=== PATIENT | female | born 1960 | race Caucasian/White ===

== ENCOUNTER 2016-10-20 22:57 | Emergency (ER) | payer OTHER ==
[2016-10-20 23:08] VITALS: TEMP 98.8; O2SAT 94
--- NOTE | 2016-10-21 00:15 | EDPHY ---
HPI/HX/ROS/PE/MDM Narrative: Chief complaint: Fever HPI: 56-year-old woman presenting for evaluation for fever. Patient states that yesterday she began having upper respiratory symptoms. Has had a mild cough. Some subjective fevers and chills. She does have a history of recent finger fracture status post surgical repair month ago. This was complicated by infection. She 1st took clindamycin then took a course of doxycycline. Patient did note that she had some increasing redness in her 1 finger yesterday. She did start taking doxycycline for this could she had some leftover. She has appointment with her hand surgeon tomorrow. She has been taking Tylenol 650 mg every 6 hours or so for fever, last was at 9 o'clock tonight. Patient states that she went to urgent care today at the suggestion of her hand surgeon to make sure she did not have flu or pneumonia. She had a flu test which was negative. They did not notice any findings on her lung exam to suggest pneumonia. However the urgent care doctor did suggest that if she continued to have fever she should come to the hospital for evaluation because she could possibly be septic. Patient otherwise has been feeling well. Has had a mild cough which is nonproductive. No shortness of breath. No abdominal pain. No nausea or vomiting. No dyspnea on exertion. She has mild redness over her distal phalanx of her finger but denies any redness coming up her hand. She feels that her symptoms are likely secondary to a virus but is presenting now at the suggestion of the urgent. She does state the approximately couple hours ago she did have a sudden onset of urinary urgency and had a episode of incontinence which is unusual for her. ROS: 10 point Review of Systems is negative except as noted in the HPI. Physical exam: Gen: Awake, Alert, No Distress HEENT: Nose: no rhinorrhea Eyes: PERRLA, EOMI Mouth: Moist mucosa Neck: Supple, no JVD Chest: nontender, lungs clear to auscultation Heart: S1, S2 normal, no murmur Abd: Soft, non-tender, no guarding Back: no CVA tenderness, no midline tenderness Ext: no edema, non-tender, left 4th finger she has a were closed well-healed incision over the PIP joint. There is some mild erythema overlying the distal phalanx. It is not, over the proximal phalanx. She has no tenderness along the flexor or extensor tendon sheath. She is not swollen. Skin: no rash Neuro: CN II-XII intact, Sensation grossly intact, Strength 5/5 in bilateral upper and lower extremities ED Course: 56-year-old woman been having subjective fevers and chills at home some mild erythema on her finger. She is certainly not appear septic at this time. She does not meet SIRS criteria in that she has a normal heart rate, a normal blood pressure, and normal respiratory rate, she has normal oxygen saturation. She has restarted doxycycline for her finger which I do not think is a source of systemic infection. She did have an episode of urinary incontinence earlier so will check urinalysis. She is otherwise well-appearing and afebrile here. If her urine looks clear plan will be to discharge her with follow up with her hand surgeon as scheduled tomorrow. I had a conversation with her at great length regarding working her up from his sepsis standpoint. She is very well appearing. I do not think a CBC will be useful at this time. Given that this is likely a viral syndrome she probably has leukocytosis any way. The we are treating a possible bacterial source of her finger and there is no other findings on her exam suggestive of any other bacterial source at this time. She has follow-up in place. She will return for any concerns. Urinalysis is negative. Patient continues to feel well. There are no objective findings to suggest acute bacteremia or sepsis at this time. Symptoms certainly are consistent with a viral upper respiratory infection. Will give her doxycycline to continue her treatment for her possible with surgical site infection of her finger. She will follow up with her hand surgeon tomorrow. Return for any worsening. - Data Points Laboratory Results: 10/21/16 00:15 Urine Color PALE YELLOW Urine Appearance CLEAR Urine pH 6.0 (5.0-7.5) Ur Specific [place] 1.005 (1.002-1.030) Urine Protein NEGATIVE (NEGATIVE) Urine Ketones NEGATIVE (NEGATIVE) Urine Blood NEGATIVE (NEGATIVE) Urine Nitrate NEGATIVE (NEGATIVE) Urine Bilirubin NEGATIVE (NEGATIVE) Urine Urobilinogen NEGATIVE EU (0.2-1.0) Ur Leukocyte Esterase NEGATIVE (NEGATIVE) Urine Glucose NEGATIVE (NEGATIVE) General Time Seen by Provider: 10/20/16 23:32 Initial Vital Signs: Initial Vital Signs Temperature (C) 37.1 C 10/20/16 23:01 Heart Rate 87 10/20/16 23:01 Respiratory Rate 16 10/20/16 23:01 Blood Pressure 151/89 H 10/20/16 23:01 O2 Sat (%) 94 10/20/16 23:01 O2 Delivery Mode Room Air Allergies/Adverse Reactions: Cephalosporins Allergy (Verified 10/20/16 23:00) clindamycin Allergy (Verified 10/20/16 23:00) Penicillins Allergy (Verified 10/20/16 23:00) Home Medications: Medication Instructions Recorded Doxycycline Hyclate 10/20/16 Synthroid 10/20/16 Tylenol 10/20/16 Departure - Departure Disposition: Home, Routine, Self-Care Clinical Impression: Infection of finger, Viral infection Condition: Good Instructions: Viral Syndrome (ED) Additional Instructions: Follow up with your hand surgeon tomorrow as scheduled. Return to the emergency department for worsening fevers or chills, weakness, chest pain, shortness of breath, abdominal pain, nausea, vomiting, or any other concerns. Referrals: Judith Connell MD [Primary Care Provider] - As per Instructions
[2016-10-21 00:24] LABS: COLOR PALE YELLOW; LEUKOCYTE ESTERASE,URINE NEGATIVE (NEGATIVE); NITRITE,URINE NEGATIVE (NEGATIVE)
[2016-10-21] MEDS ORDERED: DOXYCYCLINE 100 MG PREPACK#2 BTL TAKEHOME ONE (00:46)
[2016-10-21 00:57] VITALS: BP 142/62; PULSE 73; RESP 18
== END 2016-10-21 00:57 | disposition home or self-care (01) ==
DX: B34.9 Viral infection, unspecified (principal); L08.9 Local infection of the skin and subcutaneous tissue, unspecified

== ENCOUNTER 2017-07-17 18:49 | Emergency (ER) | payer OTHER ==
[2017-07-17 18:56] VITALS: O2SAT 99
--- NOTE | 2017-07-17 19:08 | EDPHY ---
H & P Time Seen by Provider: 07/17/17 19:00 HPI/ROS: CHIEF COMPLAINT: Left calf pain x5 days HISTORY OF PRESENT ILLNESS: 57-year-old female postop left bunionectomy [address] Mandy Palacios complaining of 5 days of left calf pain. No discoloration. No acute trauma. No weakness. No paresthesia. Spoke with her small offset printer who recommend she go to the ER for evaluation of possible DVT. No chest pain. No dyspnea. No back pain. No abdominal pain. No nausea no vomiting. Primary care provider: Dr Perdue Cardiology: Dr Loyola Podiatry: Dr Rasheeda Palacios REVIEW OF SYSTEMS: A ten point review of systems was performed and is negative with the exception of the items mentioned in the HPI PAST MEDICAL & SURGICAL HISTORY: Recent bunionectomy and cataract surgery SOCIAL HISTORY:nonsmoker PHYSICAL EXAM (Prior to examination, patient consented to physical exam, hands were washed and my usual and customary physical exam procedures followed) 1) GENERAL: Well-developed, well-nourished, alert and oriented. Appears to be in no acute distress. 2) HEAD: Normocephalic, atraumatic 3) HEENT: Pupils equal, round, reactive to light bilaterally. Sclera anicteric. No Injection. Funduscopic examination is grossly unremarkable. 4) NECK: Full range of motion, no meningeal signs. 5) LUNGS: Clear auscultation bilaterally, no wheezes, no rhonchi, no retractions. 6) HEART: Regular rate and rhythm, no murmur, no heave, no gallop. 7) ABDOMEN: No guarding, no rebound, no focal tenderness 8) MUSCULOSKELETAL: left foot surgical site appears well, granulating appropriately with no signs of infection, no dehiscence. The foot has soft compartments. The leg, calf has soft compartments negative Homans no palpable cord. DP PT pulses present and brisk. Brisk capillary refill 9) BACK: no visual or palpable abnormality. 10) SKIN: No rash, no petechiae. 11) NEURO: Awake, alert, and oriented to person, place and time. Answers questions appropriately. There were no obvious focal neurologic abnormalities. No cerebellar dysfunction. Normal steady gait. Upper and lower extremities bilaterally with strength 5 / 5, reflexes 2+.. DIFFERENTIAL DIAGNOSIS: In no particular order including but not limited to DVT , Superficial venous thrombus, central retinal artery occlusion, central retinal vein occlusion, CVA Smoking Status: Never smoked Constitutional: Initial Vital Signs Temperature (C) 37.3 C 07/17/17 18:53 Heart Rate 76 07/17/17 18:53 Respiratory Rate 20 07/17/17 18:53 Blood Pressure 180/90 H 07/17/17 18:53 O2 Sat (%) 99 07/17/17 18:53 O2 Delivery Mode Room Air Allergies/Adverse Reactions: Cephalosporins Allergy (Verified 07/17/17 18:52) clindamycin Allergy (Verified 07/17/17 18:52) Penicillins Allergy (Verified 07/17/17 18:52) Home Medications: Medication Instructions Recorded Synthroid 10/20/16 Rivaroxaban [Xarelto 15mg (*)] 15 mg PO BID #42 tab 07/17/17 MDM/Departure - MDM Imaging Results: Imaging Impressions Extremity Venous Study 07/17/17 19:06 Impression: Calf vein DVT, only. Results called and discussed with LORETO Bright at 07/17/2017 19:51 Images reviewed by myself Medications Given: Discontinued Medications Rivaroxaban (Xarelto) 15 mg PO EDNOW ONE Stop: 07/17/17 20:19 Last Admin: 07/17/17 21:12 Dose: 15 mg ED Course/Re-evaluation: 7:55 p.m.: Patient had informed the environmental laboratory technician of ongoing intermittent left visual field abnormality describing a blackening of her visual field which occurs she either bends over or goes from a supine to a sitting upright position. Currently asymptomatic. She had left cataract surgery 6 weeks ago by an habilitation worker in [place], symptoms started after that. She has seen her habilitation worker post his recently as 1 week ago and has also seen a retinal specialist as well the specific etiology of these symptoms is not completely clear. She was concerned about whether this could be secondary to CVA. Upon speaking with the patient further she denies other neurologic complaints, denies other visual acuity symptoms. Nonetheless physical examination neurologic examination was performed by myself and is grossly unremarkable. Doubt CVA. Doubt retinal detachment. 8:15 p.m.: Re-evaluation, discussed her imaging results positive for calf vein DVT. Discussed the case with secondary supervising physician Dr. Ware in the ER. Today is Wednesday. Plan will be starting the patient on Xarelto, however follow up with her primary care provider this week to discuss whether she should remain on Xarelto or other therapeutic modality such as daily aspirin. 830 p.m.: Patient requested I speak with her habilitation worker Dr. Andres May at [facility] before initiating anticoagulant therapy. He has been paged 8:45 p.m.: Phone consultation with on-call habilitation worker for Dr. Andres May, who was not immediately familiar with this patient's case but did not identify immediate contraindication to starting the patient on Xarelto for her lower extremity DVT. 9:00 p.m.: Discussed with patient my phone consultation with the on-call habilitation worker for Dr May. Provided my usual and customary anticoagulant therapy precautions and instructions. She agrees to initiating anticoagulant therapy. - Depart Disposition: Home, Routine, Self-Care Clinical Impression: Left leg DVT Qualifiers: Affected thrombotic vein of extremity: other lower extremity vein Chronicity: acute Qualified Code(s): I82.492 - Acute embolism and thrombosis of other specified deep vein of left lower extremity Condition: Good Instructions: Deep Venous Thrombosis (ED) Additional Instructions: Return to the emergency department immediately if you develop discoloration to your leg, numbness, tingling, if you develop change in her vision, or any other symptoms that concern you. Prescriptions: Rivaroxaban [Xarelto 15mg (*)] 15 mg PO BID #42 tab Referrals: Judith Connell MD [Primary Care Provider] - 07/19/17
[2017-07-17] MEDS ORDERED: RIVAROXABAN 15 MG TAB PO ONE (20:18)
[2017-07-17 20:41] LABS: % IMMATURE GRANULYOCYTES 0.2 % (0.0-1.1); ABSOLUTE IMMATURE GRANULOCYTES 0.01 10^3/uL (0.00-0.10); ADD DIFF? NO; ADD MORPH? NO; ADD SCAN? NO; ATYPICAL LYMPHOCYTE FLAG 0 (0-99); FRAGMENT RBC FLAG 0 (0-99); HEMATOCRIT 39.2 % (38.0-47.0); HEMOGLOBIN 13.6 g/dL (12.6-16.3); LEFT SHIFT FLG 0 (0-99); LIPEMIA HEMOLYSIS FLAG 90 (0-99); MEAN CELL HEMOGLOBIN CONCENTR. 34.7 g/dL (32.4-36.7); MEAN CELL VOLUME 95.1 fL (81.5-99.8); MEAN PLATELET VOLUME 11.6 fL (8.7-11.7); PLATELET CLUMPS FLAG 0 (0-99); PLATELET COUNT 226 10^3/uL (150-400); RED BLOOD CELL COUNT 4.12 10^6/uL (4.18-5.33); RED CELL DISTRIBUTION WIDTH 12.9 % (11.5-15.2)
[2017-07-17 20:50] LABS: INR 0.94 (0.83-1.16); PROTIME(PATIENT) 12.5 SEC (12.0-15.0)
[2017-07-17 20:51] LABS: ANION GAP 12 mEq/L (8-16); CALCIUM 9.8 mg/dL (8.5-10.4); CARBON DIOXIDE 28 mEq/l (22-31); CHLORIDE 102 mEq/L (97-110); CREATININE 1.1 mg/dL (0.6-1.0); GLOMERULAR FILTRATION RATE 51; GLUCOSE 106 mg/dL (70-100); POTASSIUM 4.3 mEq/L (3.5-5.2); SODIUM 142 mEq/L (134-144)
[2017-07-17] MEDS ORDERED: RIVAROXABAN 15 MG TAB ONE (21:04)
[2017-07-17 21:16] VITALS: BP 138/85; PULSE 64; RESP 15; TEMP 98.4
--- NOTE | 2017-07-18 16:34 | ASMTCMCOM ---
CM Note CM Note Notes: Patient admitted for Afib, UTI and after having a mechanical fall last night. Patient was recently d/c'd from [facility] on 07/16 with [facility] ([phone]). Patient lives at home with her , Brock ([phone]), who is blind. During last hospital stay, it was noted that a friend was staying with Brock while patient is in the hospital. Patient's son Keith can be reached at [phone]. Pt still drives and has been primary caregiver for her . Patient has been to [facility] in the past and was accepted at last visit but ended up going home with HC. This CM called [facility] and notified them of patient's admission. CM to follow. Date Signed: 07/18/2017 04:33 PM Electronically Signed By:Jessika Broderick RN
== END 2017-07-17 21:15 | disposition home or self-care (01) ==
DX: I82.492 Acute embolism and thrombosis of other specified deep vein of left lower extremity (principal)

== ENCOUNTER 2017-07-25 16:11 | Observation (INO) | payer OTHER ==
--- NOTE | 2017-07-25 16:51 | EDPHY ---
H & P Stated Complaint: yesterday at 3pm aphasia/word finding difficulty/visual changes/on xarelto Time Seen by Provider: 07/25/17 16:29 HPI/ROS: CHIEF COMPLAINT: Left eye tunnel vision HISTORY OF PRESENT ILLNESS: The patient is an anticoagulated 57 y/o female complaining of left eye tunnel vision/ transient sudden loss of vision when she stands up. On 05/31/17, 2 months ago, she had cataract surgery, but developed worsening christine vision in her left eye while standing up. Last month she had foot surgery after which she developed a DVT. 5 days ago she saw Dr. Chad Soliz, wallpaper embosser helper, for a follow up visit for the DVT, for which she was placed on Xarelto. Ever since the cataract surgery she has had left eye tunnel vision when she stands up strains up from being bent over from being bent over. The tunnel vision slowly diminishes after 1-2 minutes. She saw an street roller engineer on Wednesday, 2 days ago, where she was diagnosed with an "occlusion of her left eye". Patient reports undergoing a test to evaluate the arterial flow to the right in a. She was told by Ophthalmology that the arterial flow to the left retina was significantly diminished. Ophthalmology recommended angiograms of the head and neck. Yesterday she went for a walk, but developed tunnel vision while standing ( without bending over first), which had not happened before. She is also complaining of a left-sided headache behind her eye, but no eye pain. Patient also had an episode of word-finding difficulty yesterday lasting for several minutes. Today, while working on the computer, she had approximately 45 minute duration of vision problems described as "the sentences were disconnected, I could read from right to left, lines across a paper were wavy and bisecting each other". It is unclear whether this symptomatology was present in both eyes with a left only. Those symptoms have resolved. No numbness, tingling, or weakness in extremities, fever, chills, chest pain, shortness of breath, palpitations, vomiting, diarrhea, urinary complaints, lightheadedness. No tobacco or drug use. REVIEW OF SYSTEMS: Aside from elements discussed in the HPI, a comprehensive 10-point review of systems was reviewed and is negative. PAST MEDICAL HISTORY: DVT, CAD, hypothyroid, cataract surgery SOCIAL HISTORY: Lives in [place], single, retired VITAL SIGNS: BP: 175/103, MAP: 127, Others reviewed by me GENERAL: Well-developed, well-nourished, resting comfortably in no respiratory distress. HEENT: Atraumatic. Eyes: I did a funduscopic exam, I am able to visualize the retina and vessels in both eyes. No icterus, no injection. Mouth: moist mucous membranes. No erythema or lesions. Neck: supple with no adenopathy. LUNGS: Clear to auscultation bilaterally, no wheezes, rhonchi or rales. CARDIAC: Regular rate and rhythm, no rubs, murmurs or gallops. ABDOMEN: Soft, nontender, nondistended, bowel sounds normal. BACK: No CVA tenderness. EXTREMITIES: No trauma. No edema. Range of motion is normal throughout. NEURO: Alert and oriented, cranial nerves II through XII are intact. Motor strength 5 over 5 in all major muscle groups. Sensation intact to light touch. Vbdqyk-[id number]-cadl and [id number] is normal. EOMI. No nystagmus. SKIN: Warm and dry, no rash. PSYCHIATRIC: Normal mentation, no agitation. Portions of this note were transcribed by a medical billing and coding specialist. I personally performed a history, physical exam, medical decision making, and confirmed accuracy of information the transcribed note. - Personal History Current Tetanus/Diphtheria Vaccine: Yes Tetanus Vaccine Date: 2011 - Medical/Surgical History Hx Asthma: No Hx Chronic Respiratory Disease: No Hx Diabetes: No Hx Cardiac Disease: Yes Hx Renal Disease: No Hx Cirrhosis: No Hx Alcoholism: No Hx HIV/AIDS: No Hx Splenectomy or Spleen Trauma: No Other PMH: hypothyroid, CAD. bunionectomy, cataract sx. dvt - Social History Smoking Status: Never smoked Constitutional: Initial Vital Signs Temperature (C) 36.7 C 07/25/17 16:18 Heart Rate 88 07/25/17 16:18 Respiratory Rate 17 07/25/17 16:18 Blood Pressure 175/103 H 07/25/17 16:18 O2 Sat (%) 97 07/25/17 16:18 O2 Delivery Mode Room Air Allergies/Adverse Reactions: Cephalosporins Allergy (Verified 07/25/17 16:18) clindamycin Allergy (Verified 07/25/17 16:18) Penicillins Allergy (Verified 07/25/17 16:18) Home Medications: Medication Instructions Recorded Levothyroxine [Synthroid 50 mcg 50 mcg PO DAILY06 10/20/16 (*)] Rivaroxaban [Xarelto 15mg (*)] 15 mg PO BID #42 tab 07/17/17 Brimonidine/Timolol [Combigan (*)] 1 drops LEFTEYE BID 07/25/17 C/E/Zn/Cu/OM3/DHA/EPA/LUT/ZEAX 1 each PO DAILY 07/25/17 [Preservision Areds 2 Softgel] Cholecalciferol Vit D3 [Vitamin D3 1,000 units PO DAILY 07/25/17 (*)] Multivitamins [Multivitamin (*)] 1 each PO DAILY 07/25/17 Nepafenac [Nevanac] 1 drop LEFTEYE BID 07/25/17 Medical Decision Making - Diagnostics Imaging Results: Imaging Impressions Head CT 07/25/17 16:56 Impression: 1. No significant intracranial abnormality seen. If symptoms worsen, additional imaging may be necessary. These findings were discussed by telephone with Dr. Angela Mariee at 1953hrs. Head CTA 07/25/17 16:56 Impression: 1. Normal CT angiogram of the neck. The left vertebral artery is dominant. 2. Normal CT angiogram of the [place] with normal variation, as detailed above. Note: All calculations were performed using NASCET criteria. Findings discussed with Angela Mariee MD at 20:01 hour, 07/25/2017. Neck CTA 07/25/17 16:56 Impression: 1. Normal CT angiogram of the neck. The left vertebral artery is dominant. 2. Normal CT angiogram of the [place] with normal variation, as detailed above. Note: All calculations were performed using NASCET criteria. Findings discussed with Angela Mariee MD at 20:01 hour, 07/25/2017. Imaging: Discussed imaging studies w/ score caller Radiologist, I viewed and interpreted images myself ED Course/Re-evaluation: The patient is a 57 y/o female presenting with intermittent left eye tunnel vision which appears to be somewhat orthostatic in nature. She also does report an episode of word-finding difficulty yesterday and bilateral vision difficulty today. Plan for CTA of the head and neck as well as a head CT given the fact that the patient has had 2 abrupt focal neurologic deficits in the last 2 days. 2001: Spoke with radiologist, he report the patients head CT, head CTA, and Neck CTA are negative. 2010: Reassessed patient and discussed imaging findings. 2034: Consulted with [facility] regarding the patient's symptoms and imaging studies. Recommendation for admission and further evaluation for the patient's TIA. 2037: Consulted with hospitalist service, Dr. Hernández accepts admission of this patient. Reassessed patient and discussed plan for admission. Patient is comfortable with this plan. MRI pending at time of admission. Differential Diagnosis: Differential diagnoses the patient's presenting complaints was considered including but not limited to TIA, ischemic cerebrovascular accident, hemorrhagic cerebrovascular accident, hypoglycemia, complex migraine, multiple sclerosis, cerebellar infarct, retinal artery occlusion or retinal vein occlusion. Consult/Admit Bed Type: Dr Hernández, med surg - Data Points Laboratory Results: Laboratory Results 07/25/17 17:30 07/25/17 17:30 07/25/17 07/25/17 07/25/17 17:30 17:30 17:30 WBC 5.08 10^3/uL 10^3/uL (3.80-9.50) RBC 4.27 10^6/uL 10^6/uL (4.18-5.33) Hgb 14.0 g/dL g/dL (12.6-16.3) Hct 40.2 % % (38.0-47.0) MCV 94.1 fL fL (81.5-99.8) MCH 32.8 pg pg (27.9-34.1) MCHC 34.8 g/dL g/dL (32.4-36.7) RDW 12.8 % % (11.5-15.2) Plt Count 251 10^3/uL 10^3/uL (150-400) MPV 11.0 fL fL (8.7-11.7) Neut % (Auto) 44.2 % % (39.3-74.2) Lymph % (Auto) 39.8 % % (15.0-45.0) [place] % (Auto) 8.1 % % (4.5-13.0) Eos % (Auto) 5.9 % % (0.6-7.6) Baso % (Auto) 1.8 % H % (0.3-1.7) Nucleat RBC Rel Count 0.0 % % (0.0-0.2) Absolute Neuts (auto) 2.25 10^3/uL 10^3/uL (1.70-6.50) Absolute Lymphs (auto) 2.02 10^3/uL 10^3/uL (1.00-3.00) Absolute Monos (auto) 0.41 10^3/uL 10^3/uL (0.30-0.80) Absolute Eos (auto) 0.30 10^3/uL 10^3/uL (0.03-0.40) Absolute Basos (auto) 0.09 10^3/uL 10^3/uL (0.02-0.10) Absolute Nucleated RBC 0.00 10^3/uL 10^3/uL (0-0.01) Immature Gran % 0.2 % % (0.0-1.1) Immature Gran # 0.01 10^3/uL 10^3/uL (0.00-0.10) PT 17.2 SEC H SEC (12.0-15.0) INR 1.41 H (0.83-1.16) Sodium 140 mEq/L mEq/L (134-144) Potassium 3.7 mEq/L mEq/L (3.5-5.2) Chloride 99 mEq/L mEq/L (97-110) Carbon Dioxide 27 mEq/l mEq/l (22-31) Anion Gap 14 mEq/L mEq/L (8-16) BUN 16 mg/dL mg/dL (7-23) Creatinine 0.9 mg/dL mg/dL (0.6-1.0) Estimated GFR > 60 Glucose 123 mg/dL H mg/dL (70-100) Calcium 9.8 mg/dL mg/dL (8.5-10.4) Troponin I < 0.012 ng/mL ng/mL (0.000-0.034) Medications Given: Rivaroxaban (Xarelto) 15 mg PO EDNOW ONE Stop: 07/26/17 21:17 Last Admin: 07/25/17 21:19 Dose: 15 mg Departure - Departure Disposition: [facility] Clinical Impression: TIA (transient ischemic attack), Vision changes Condition: Fair Report Scribed for: Angela Mariee Report Scribed by: Leah Jacob Date of Report: 07/25/17 Time of Report: 16:53
[2017-07-25 17:36] LABS: PLATELET COUNT 251 10^3/uL (150-400)
[2017-07-25 17:50] LABS: INR 1.41 (0.83-1.16); PROTIME(PATIENT) 17.2 SEC (12.0-15.0)
[2017-07-25] MEDS ORDERED: IOPAMIDOL (ISOVUE 370) 100 ML BTL IV ONE (19:01)
[2017-07-25] MEDS ORDERED: RIVAROXABAN 15 MG TAB ONE (21:09)
[2017-07-25] MEDS ORDERED: ACETAMINOPHEN 325 MG TAB PO PRN (22:14)
[2017-07-25] MEDS ORDERED: LORazepam 2 MG/ML INJ IVP PRN (22:14)
[2017-07-25] MEDS ORDERED: ONDANSETRON 4 MG/2 ML VIAL IVP PRN (22:14)
--- NOTE | 2017-07-26 03:34 | PDGENHP ---
History and Physical - Chief Complaint tunnel vision left eye, word finding difficulties - History of Present Illness Source - patient provides history and very knowledgeable regarding pmhx. EMR also reviewed. HPI - Pleasant 57 yo F with pmhx significant for CAD, hypothyroidism, endometriosis, and recent DVT diagnosed 07/17/17 post bunion surgery now on Xarelto who presents to the ED with complaints of persistent episodes of intermittent tunnel vision left eye and today word finding and recall difficulties. Patient states that she underwent left eye cataract surgery 8 weeks ago and since that time has been having episodes of tunnel vision lasting 1-2 minutes after sitting up or bending over. She reports a headache behind her left eye after surgery that has since resolved. She denies any facial drooping, dysarthria or new focal findings in her extremities. Patient states she followed up with general production laborer and underwent a retinal angiogram at [facility] ophthalmology practice. She states findings were negative for occlusion but delayed filling of contrast was reported. She was subsequently referred to cardiology for an echo with bubble study results of which she has not yet been advised. Today patient had a contractor at her home and noted that she was having difficulties finding her words. She also noted episode of tunnel vision in the left eye however this time occurred while patient was standing still. Patient confided in her niece who is traditional maori health practitioner and advised to go to the ED for further evaluation. Patient states she has been compliant with Xarelto dosing since she was diagnosed with DVT. She continues to have some swelling in her left foot/calf but denies any chest pain/palpitations or SOB. History Information - Allergies/Home Medication List Allergies/Adverse Reactions: Cephalosporins Allergy (Verified 07/25/17 16:18) clindamycin Allergy (Verified 07/25/17 16:18) Penicillins Allergy (Verified 07/25/17 16:18) Home Medications: Levothyroxine [Synthroid 50 mcg (*)] 50 mcg PO DAILY06 10/20/16 [Last Taken 02/03] Brimonidine/Timolol [Combigan (*)] 1 drops LEFTEYE BID 07/25/17 [Last Taken 02/03 21:00] C/E/Zn/Cu/OM3/DHA/EPA/LUT/ZEAX [Preservision Areds 2 Softgel] 1 each PO DAILY [Last Taken 07/25/17] Cholecalciferol Vit D3 [Vitamin D3 (*)] 1,000 units PO DAILY 07/25/17 [Last Taken 07/25/17] Multivitamins [Multivitamin (*)] 1 each PO DAILY 07/25/17 [Last Taken 07/25/17] Nepafenac [Nevanac] 1 drop LEFTEYE BID 07/25/17 [Last Taken 07/25/17 21:00] I have personally reviewed and updated: family history, medical history, social history, surgical history - Past Medical History Additional medical history: DVT left leg 07/17/17 on Xarelto s/p left bunion surgery. CAD not on medical therapy. hypothyroidism. endometriosis/fibroids. Left eye retinal scarring s/p resurfacing vitreous removal. Left eye glaucoma s/p cataract extraction with lens placement. subsequently patient left pupil slightly larger than right. - Surgical History Additional surgical history: L retinal. L cataract surgery 05/2017. L bunion . T/A. D&C. ovarian cystectomy 2008 - Family History Additional family history: father - CAD s/p 5 vessel CABG age 49, ESRD. CVA. mother - afib, pancreatic and thyroid cancer. CVA. Maternal aunt - fatal CVA. 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 FULL COR - proxy Usha Ashley (niece), David Navarro (uncle). Review of Systems Review of Systems: ROS: 10pt was reviewed & negative except for what was stated in HPI & below Constitutional: Reports: no symptoms. Denies: chills, fever, weakness EENMT: Reports: other (no congestion, sore throat. ) Cardiac: Reports: no symptoms. Denies: chest pain, palpitations, syncope Respiratory: Reports: no symptoms. Denies: cough, shortness of breath Gastrointestinal: Reports: no symptoms. Denies: vomitting, diarrhea Genitourinary: Reports: no symptoms Muscolosketal: Reports: no symptoms Skin: Reports: no symptoms. Denies: rash Neurological: Reports: other (tunnel vision, aphasia - see HPI.) Physical Exam Physical Exam: Selected Entries 07/25/17 16:18 Blood Pressure Automatic Method Heart Rate 88 Respiratory 17 Rate O2 Sat (%) 97 Temperature (C) 36.7 C Blood Pressure 175/103 H Mean Arterial 127 H Pressure (MAP) O2 Delivery Room Air Mode Temperature Oral Source Temp Pulse Resp BP Pulse Ox 36.3 C 63 16 111/66 94 07/25/17 23:52 07/25/17 23:52 07/25/17 23:52 07/25/17 23:52 07/25/17 23:52 Constitutional: no apparent distress, appears nourished, not in pain, other ( NAD. pleasant adult female sitting up in bed. ) Eyes: PERRL, anicteric sclera, EOMI Ears, Nose, Mouth, Throat: moist mucous membranes, other (no nasal discharge. no oropharyngeal erythema.) Cardiovascular: regular rate and rhythym, no murmur, rub, or gallop, pulses symmetric bilaterally, No edema Peripheral Pulses: 2+: dorsalis-pedis (R), dorsalis-pedis (L) Respiratory: no respiratory distress, no rales or rhonchi, clear to auscultation Gastrointestinal: normoactive bowel sounds, soft, non-tender abdomen, no palpable masses Genitourinary: no bladder fullness, No max in urethra Skin: warm, normal color, No rash Musculoskeletal: full muscle strength, no muscle tenderness, No generalized weakness Neurologic: AAOx3, sensation intact bilaterally, CN II-XII Intact, No weakness, No numbness, No facial droop Psychiatric: interacting appropriately, not anxious, not encephalopathic, thought process linear Lab Data & Imaging Review 07/25/17 17:30 07/25/17 17:30 WBC 5.08 10^3/uL (3.80-9.50) 07/25/17 17:30 RBC 4.27 10^6/uL (4.18-5.33) 07/25/17 17:30 Hgb 14.0 g/dL (12.6-16.3) 07/25/17 17:30 Hct 40.2 % (38.0-47.0) 07/25/17 17:30 MCV 94.1 fL (81.5-99.8) 07/25/17 17:30 MCH 32.8 pg (27.9-34.1) 07/25/17 17:30 MCHC 34.8 g/dL (32.4-36.7) 07/25/17 17:30 RDW 12.8 % (11.5-15.2) 07/25/17 17:30 Plt Count 251 10^3/uL (150-400) 07/25/17 17:30 MPV 11.0 fL (8.7-11.7) 07/25/17 17:30 Neut % (Auto) 44.2 % (39.3-74.2) 07/25/17 17:30 Lymph % (Auto) 39.8 % (15.0-45.0) 07/25/17 17:30 [place] % (Auto) 8.1 % (4.5-13.0) 07/25/17 17:30 Eos % (Auto) 5.9 % (0.6-7.6) 07/25/17 17:30 Baso % (Auto) 1.8 % (0.3-1.7) H 07/25/17 17:30 Nucleat RBC Rel Count 0.0 % (0.0-0.2) 07/25/17 17:30 Absolute Neuts (auto) 2.25 10^3/uL (1.70-6.50) 07/25/17 17:30 Absolute Lymphs (auto) 2.02 10^3/uL (1.00-3.00) 07/25/17 17:30 Absolute Monos (auto) 0.41 10^3/uL (0.30-0.80) 07/25/17 17:30 Absolute Eos (auto) 0.30 10^3/uL (0.03-0.40) 07/25/17 17:30 Absolute Basos (auto) 0.09 10^3/uL (0.02-0.10) 07/25/17 17:30 Absolute Nucleated RBC 0.00 10^3/uL (0-0.01) 07/25/17 17:30 Immature Gran % 0.2 % (0.0-1.1) 07/25/17 17:30 Immature Gran # 0.01 10^3/uL (0.00-0.10) 07/25/17 17:30 PT 17.2 SEC (12.0-15.0) H 07/25/17 17:30 INR 1.41 (0.83-1.16) H 07/25/17 17:30 Sodium 140 mEq/L (134-144) 07/25/17 17:30 Potassium 3.7 mEq/L (3.5-5.2) 07/25/17 17:30 Chloride 99 mEq/L (97-110) 07/25/17 17:30 Carbon Dioxide 27 mEq/l (22-31) 07/25/17 17:30 Anion Gap 14 mEq/L (8-16) 07/25/17 17:30 BUN 16 mg/dL (7-23) 07/25/17 17:30 Creatinine 0.9 mg/dL (0.6-1.0) 07/25/17 17:30 Estimated GFR > 60 07/25/17:30 Glucose 123 mg/dL (70-100) H 07/25/17 17:30 Calcium 9.8 mg/dL (8.5-10.4) 07/25/17:30 Troponin I < 0.012 ng/mL (0.000-0.034) 07/25/17 17:30 Imaging Review: Noncontrast Head CT 1 hours History: TIA symptoms. Aphasia with tunnel vision yesterday. Loss of vision left eye. Technique: Standard noncontrast head CT protocol utilizing spiral images was acquired through the calvarium. Images were reconstructed in multiple planes as well. Dose reduction techniques were utilized. Findings: The cerebral parenchyma has a normal attenuation throughout. There are no masses, intracranial hemorrhage, subdural collections, or evidence of recent cerebral infarction. The bones are unremarkable. The paranasal sinuses are clear. Impression: 1. No significant intracranial abnormality seen. If symptoms worsen, additional imaging may be necessary. CT Angiogram of the Head and Neck 3 hours History: TIA symptoms with dysphasia; Word-finding difficulty. Loss of vision in the left eye. Technique: Spiral imaging was obtained from the aortic arch through the skull during the administration of 85 mL Isovue-370 IV contrast. The images were reviewed in multiple planes. Volume rendering and vessel analysis was performed by myself on the independent workstation. Dose reduction techniques were utilized. Findings: CT Angiogram Neck: The aortic arch has a normal contour. The great vessels off the aortic arch are normal in appearance. The common carotid artery has a normal contour bilaterally. The carotid bulb is normal in appearance without plaque formation. The ECA and ICA are normal without plaque formation or stenosis. The vertebral arterial system within the neck is normal in appearance without stenosis, as well. The left vertebral artery is dominant. The origin of the vertebral artery is normal bilaterally. There is no evidence of aneurysm or dissection. Images through the neck demonstrate no significant lymphadenopathy. A few small subcentimeter lymph nodes are seen. The musculature is symmetric. The submandibular glands and parotid glands are normal in appearance bilaterally. CT Angiogram [place]: The distal ICA at the base of the brain has a normal appearance bilaterally without evidence of stenosis. No significant plaque formation is seen. There is normal branching into the anterior and middle cerebral arteries. The anterior communicating artery is normal in appearance. There is no cutoff of flow or evidence of aneurysm. There is a dominant posterior communicating artery bilaterally. Normal ophthalmic artery is seen bilaterally. The vertebrobasilar system demonstrates normal contrast enhancement without evidence of stenosis or aneurysm. However, the right distal vertebral artery terminates in the posterior inferior cerebellar artery. There is normal branching into the superior cerebellar artery. There is a tiny P1 segment bilaterally with posterior cerebral artery circulation predominantly off the posterior communicating artery bilaterally. Imaging through the brain demonstrates no evidence of intracranial hemorrhage, subdural collection, vascular malformation, or evidence of cerebral infarction. Cataract surgery on the left is noted. The optic nerve has a normal contour bilaterally. The extraocular muscles are normal in appearance. Impression: 1. Normal CT angiogram of the neck. The left vertebral artery is dominant. 2. Normal CT angiogram of the [place] with normal variation, as detailed above. MRI Brain (Without Contrast) 2208 hours History: Visual difficulties today with word finding difficulties yesterday . Technique: T1-weighted images were acquired axially and sagittally from the foramen magnum to the vertex. Axial fast inversion recovery, fast T2-weighted, susceptibility weighted imaging, and diffusion-weighted axial images were obtained without contrast. Findings: The ventricles, cisterns, and sulci are normal without atrophy, hydrocephalus, midline shift, herniation, or epidural/subdural hematomas. No intracranial hemorrhage or masses. Diffusion weighted sequence demonstrates no acute infarct. Cerebellar tonsils are in normal position. Pituitary gland is normal in size. Normal signal flow-void in the superior sagittal sinus, basilar artery, and bilateral internal carotid arteries indicating patency. Paranasal sinuses and mastoid air cells are clear. Incidental note is made of changes from previous cataract surgery left orbit. Impression: 1. Normal MRI of the brain without contrast. If symptoms worsen, additional imaging may be necessary. EKG additional interpertation: tele - NSR. ekg ordered. Assessment & Plan Assessment: #Vision changes - patient evaluation for acute CVA with CT head/CTA head & neck/ MRI negative. patient with longstanding history of issues with left eye. reports recent retinal angio showed slowed filling defect. 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 Additionally echo with bubble was recently completed with cardiology and will also try to obtain report. ddx including TIA (with newly reported aphasia) vs. amaurosis fugax vs other retinal artery or ophthalmologic abnormalities. stroke protocol in place. PT/OT /ST consultation. check lipids/a1c in AM. ekg also ordered. NSR on tele. #aphasia - ST for cognitive evaluation. #hyperglycemia - nonfasting and patient without previous history. check a1c. #elevated inr - on xarelto. no need to repeat. chronic medical problems DVT - continue xarelto CAD - not currently on medical therapy. pt adheres to strict lifestyle modifications. hypothyroidism - continue l-thyroxine. FEN - SLIV. electrolyte replacement if needed. cardiac diet. PPX - no SCDs 2/2 DVT. on Xarelto will continue COR - FULL. Patient niece/traditional maori health practitioner Usha Abbsasha and uncle Oumar Navarro proxy if needed. Dispo - Patient admitted to observation on neurology floor.
[2017-07-26 05:21] LABS: PLATELET COUNT 234 10^3/uL (150-400)
[2017-07-26] MEDS ORDERED: LEVOTHYROXINE 50 MCG TAB PO SCH (07:45)
[2017-07-26 07:47] VITALS: RESP 22
[2017-07-26] MEDS ORDERED: NEPAFENAC LEFTEYE SCH (09:00)
[2017-07-26] MEDS ORDERED: CHOLECALCIFEROL VIT D3 1,000 UNITS TAB PO SCH (09:00)
[2017-07-26] MEDS ORDERED: PRESERVISION AREDS2 FORMULA EYE VIT 1 EACH PO SCH (09:00)
[2017-07-26] MEDS ORDERED: MULTIVITAMINS 1 EACH TAB PO SCH (09:00)
[2017-07-26] MEDS ORDERED: BRIMONIDINE/TIMOLOL 5 ML OPHT.BTL LEFTEYE SCH (09:00)
--- NOTE | 2017-07-26 09:43 | CPEKG ---
Heart Rate: 68 RR Interval: 882 P-R Interval: 164 QRSD Interval: 80 QT Interval: 380 QTC Interval: 405 P Ringling: 77 QRS Ringling: 61 T Wave Ringling: 66 EKG Severity - BORDERLINE ECG - EKG Impression: SINUS RHYTHM EKG Impression: BORDERLINE T ABNORMALITIES, ANT-LAT LEADS Electronically Signed By: Ubaldo Aragon 27-Jul-2017 10:40:23
[2017-07-26 11:00] VITALS: O2SAT 94
--- NOTE | 2017-07-26 11:41 | HOSPPROG ---
Hospitalist Progress Note Assessment/Plan: #Ischemic optic neuropathy with hypoperfusion symptoms / ongoing visual deficit - MRI brain and CTA head/neck neg for acute CVA. She has a complex h/o macular pucker (apparently resolved), followed by cataract surgery in 05/2017. Then developed corneal infection in 06/2017. Continues to have episodes of blackout vision on the left with just a pinpoint of visual field. Symptoms are positional and per Dr. Ovalle's note (3rd opthalmologist opinion), there was concern for choroid or opthalmic a. insufficiency and cardiovascular w/u ensued. Echo with bubble study done by Dr Aragon, no results in [place]. -I think it is reasonable to r/o cavernous sinus thrombosis given her DVT hx and symptoms associated with persistent headache and positional nature -Discussed with radiology for review of CTA and MRI -cardiology consult requested by Dr. Aragon -neurology consult requested -she will likely need referral to neuro-opthalmology at the [facility] #Ocular hypertension - cont combivan # DVT - cont xarelto #aphasia - resolved #hyperglycemia - nonfasting and patient without previous history. check a1c. # CAD - outpt stress test scheduled for next week. Followed by Dr. Aragon # hypothyroidism - continue l-thyroxine. PPX - cont xarelto COR - FULL. Patient niece/industrial eng Usha Pandey and uncle Oumar Navarro proxy if needed. Dispo - Patient admitted to observation on neurology floor. Objective: Vital Signs Temp Pulse Resp BP Pulse Ox 36.6 C 71 22 H 109/67 94 07/26/17 07:46 07/26/17 10:16 07/26/17 07:46 07/26/17 10:16 07/26/17 10:16 Laboratory Results 07/26/17 04:20 07/26/17 04:20 07/25/17 07/26/17 07/27/17 05:59 05:59 05:59 Intake Total 400 Output Total 0 Balance 400 PT 17.2 SEC (12.0-15.0) H 07/25/17 17:30 INR 1.41 (0.83-1.16) H 07/25/17 17:30 ICD10 Worksheet Patient Problems: Problems Problem Status Onset TIA (transient ischemic attack) Acute Vision changes Acute
--- NOTE | 2017-07-26 11:41 | HOSPPROG ---
Hospitalist Progress Note Assessment/Plan: #Ischemic optic neuropathy with hypoperfusion symptoms / ongoing visual deficit - MRI brain and CTA head/neck neg for acute CVA. She has a complex h/o macular pucker (apparently resolved), followed by cataract surgery in 05/2017. Then developed corneal infection in 06/2017. Continues to have episodes of blackout vision on the left with just a pinpoint of visual field. Symptoms are positional and per Dr. Ovalle's note (3rd opthalmologist opinion), there was concern for choroid or opthalmic a. insufficiency and cardiovascular w/u ensued. Echo with bubble study done by Dr Aragon, no results in [place]. -I think it is reasonable to r/o cavernous sinus thrombosis given her DVT hx and symptoms associated with persistent headache and positional nature -Discussed with radiology for review of CTA and MRI -cardiology consult requested by Dr. Aragon -neurology consult requested -she will likely need referral to neuro-opthalmology at the [place] #Ocular hypertension - cont combivan # DVT - cont xarelto #aphasia - resolved #hyperglycemia - nonfasting and patient without previous history. check a1c. # CAD - outpt stress test scheduled for next week. Followed by Dr. Aragon # hypothyroidism - continue l-thyroxine. PPX - cont xarelto COR - FULL. Patient niece/risk management professional Usha Pandey and uncle Oumar Navarro proxy if needed. Dispo - Patient admitted to observation on neurology floor. Objective: Vital Signs Temp Pulse Resp BP Pulse Ox 36.6 C 71 22 H 109/67 94 07/26/17 07:46 07/26/17 10:16 07/26/17 07:46 07/26/17 10:16 07/26/17 10:16 Laboratory Results 07/26/17 04:20 07/26/17 04:20 07/25/17 07/26/17 07/27/17 05:59 05:59 05:59 Intake Total 400 Output Total 0 Balance 400 PT 17.2 SEC (12.0-15.0) H 07/25/17 17:30 INR 1.41 (0.83-1.16) H 07/25/17 17:30 ICD10 Worksheet Patient Problems: Problems Problem Status Onset TIA (transient ischemic attack) Acute Vision changes Acute
[2017-07-26] MEDS ORDERED: GADOBUTROL 10 ML VIAL IVP ONE (12:47)
[2017-07-26] MEDS ORDERED: RIVAROXABAN 15 MG TAB PO SCH (14:30)
[2017-07-26 15:42] VITALS: BP 119/83; PULSE 60; TEMP 97.9
--- NOTE | 2017-07-26 16:54 | ASMTCMCOM ---
CM Note CM Note Notes: Therapies clear pt for home, no CM d/c needs identified. Date Signed: 07/26/2017 04:53 PM Electronically Signed By:JUVENAL Sanabria
--- NOTE | 2017-07-26 16:54 | ASMTCMCOM ---
CM Note CM Note Notes: Therapies clear pt for home, no CM d/c needs identified. Date Signed: 07/26/2017 04:53 PM Electronically Signed By:JUVENAL Sanabria
--- NOTE | 2017-07-26 16:54 | ASMTCMCOM ---
CM Note CM Note Notes: Therapies clear pt for home, no CM d/c needs identified. Date Signed: 07/26/2017 04:53 PM Electronically Signed By:JUVENAL Sanabria
--- NOTE | 2017-07-26 17:30 | GDS ---
[f rep st] DISCHARGE SUMMARY DISCHARGE DIAGNOSES: 1. 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 2. Ocular hypertension, on Combigan. 3. Deep venous thrombosis, on Xarelto. 4. Aphasia, resolved. 5. Coronary artery disease, stable. 6. Hypothyroidism. CONSULTANTS: 1. Dr. Ubaldo Aragon, Cardiology. 2. Dr. Ashkan Pichardo, Neurology. IMAGING STUDIES AND PROCEDURES: 1. MRI of the brain, both with and without contrast, were normal without evidence of acute stroke or enhancing lesions. 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 2. MR venogram was negative for a cavernous sinus thrombosis or superior sagittal sinus thrombosis. 3. Head CT was negative. 4. CT angiogram of the head and neck was also negative for occlusions. HISTORY: For details, please see the History and Physical dated July 26, 2017. In brief, the ton blackman is a 57-year-old female with history of stable coronary artery disease, who [facility] with ongoing left visual field loss which she describes as a blackout with just a p inpoint of vision. These symptoms are episodic. She has a complex ophthalmologic history with a his tory of macular pucker, which is now apparently resolved. She then developed a rapidly progressive c ataract and underwent surgery for this in May 2017. She then developed a corneal infection in June of 2017. She has seen 3 ophthalmologists, most recently Dr. Ovalle in [place], who diagnosed ischemic optic neuropathy with hypoperfusion symptoms, and there was some concern there was occlusive disease between the heart and her ophthalmic artery, as it appeared she had some ophthalmic artery i nsufficiency. I discussed the case with 2 defense attorney, Dr. Vidales and Dr. Chad Aragon. She had an echo with a bu bble study in the outpatient setting last week that did show PFO with an intracardiac shunt, though t his is not believed to be the source of her symptoms. Angiography of the head and neck was negative, as above. Cardiology does not feel that there is a cardiovascular source for her ophthalmic artery insufficiency symptoms. Neurology consult also obtained, cavernous sinus thrombosis was essentially ruled out with the above imaging. At this point, she needs a consultation with Neuro[facility]Ophthalmology a t [facility], and she does have an appointment scheduled for August 05. There is obviously no evidence of acute stroke and I think the patient is safe to discharge home with outpatient followup i n the Neuro-Ophthalmology Clinic as scheduled. However, we are still waiting for Neurology to consul t; should there be any new recommendations from the neurology consult, that may delay her discharge. Otherwise, she is likely safe to discharge after cleared by Neurology. She has been continued on he r Xarelto for her DVT history. She will continue all of her outpatient eye medications as previously prescribed. DISPOSITION: Patient is discharged home in stable condition. FOLLOWUP: 1. Neuro-Ophthalmology at the [facility]. 2. Dr. Ovalle, electric motor tester assembler. 3. Dr. Ubaldo Aragon, defense attorney. 4. Dr. Judith Connell, her primary care. /[id number]/MODL
--- NOTE | 2017-07-26 17:30 | GDS ---
[f rep st] DISCHARGE SUMMARY DISCHARGE DIAGNOSES: 1. 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 2. Ocular hypertension, on Combigan. 3. Deep venous thrombosis, on Xarelto. 4. Aphasia, resolved. 5. Coronary artery disease, stable. 6. Hypothyroidism. CONSULTANTS: 1. Dr. Ubaldo Aragon, Cardiology. 2. Dr. Ashkan Pichardo, Neurology. IMAGING STUDIES AND PROCEDURES: 1. MRI of the brain, both with and without contrast, were normal without evidence of acute stroke or enhancing lesions. 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 2. MR venogram was negative for a cavernous sinus thrombosis or superior sagittal sinus thrombosis. 3. Head CT was negative. 4. CT angiogram of the head and neck was also negative for occlusions. HISTORY: For details, please see the History and Physical dated July 26, 2017. In brief, the ton blackman is a 57-year-old female with history of stable coronary artery disease, who presented to [facility] department with ongoing left visual field loss which she describes as a blackout with just a p inpoint of vision. These symptoms are episodic. She has a complex ophthalmologic history with a his tory of macular pucker, which is now apparently resolved. She then developed a rapidly progressive c ataract and underwent surgery for this in May 2017. She then developed a corneal infection in June of 2017. She has seen 3 ophthalmologists, most recently Dr. Ovalle in [place], who diagnosed ischemic optic neuropathy with hypoperfusion symptoms, and there was some concern there was occlusive disease between the heart and her ophthalmic artery, as it appeared she had some ophthalmic artery i nsufficiency. I discussed the case with 2 plant clerk, Dr. Vidales and Dr. Chad Aragon. She had an echo with a bu bble study in the outpatient setting last week that did show PFO with an intracardiac shunt, though t his is not believed to be the source of her symptoms. Angiography of the head and neck was negative, as above. Cardiology does not feel that there is a cardiovascular source for her ophthalmic artery insufficiency symptoms. Neurology consult also obtained, cavernous sinus thrombosis was essentially ruled out with the above imaging. At this point, she needs a consultation with Neuro-Ophthalmology a t [facility], and she does have an appointment scheduled for August 05. There is obviously no evidence of acute stroke and I think the patient is safe to discharge home with outpatient followup i n the Neuro-Ophthalmology Clinic as scheduled. However, we are still waiting for Neurology to consul t; should there be any new recommendations from the neurology consult, that may delay her discharge. Otherwise, she is likely safe to discharge after cleared by Neurology. She has been continued on he r Xarelto for her DVT history. She will continue all of her outpatient eye medications as previously prescribed. DISPOSITION: Patient is discharged home in stable condition. FOLLOWUP: 1. Neuro-Ophthalmology at the [facility]. 2. Dr. Ovalle, tamale machine feeder. 3. Dr. Ubaldo Aragon, plant clerk. 4. Dr. Judith Connell, her primary care. /[id number]/MODL
--- NOTE | 2017-07-26 17:30 | GDS ---
[f rep st] DISCHARGE SUMMARY DISCHARGE DIAGNOSES: 1. 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 2. Ocular hypertension, on Combigan. 3. Deep venous thrombosis, on Xarelto. 4. Aphasia, resolved. 5. Coronary artery disease, stable. 6. Hypothyroidism. CONSULTANTS: 1. Dr. Ubaldo Aragon, Cardiology. 2. Dr. Ashkan Pichardo, Neurology. IMAGING STUDIES AND PROCEDURES: 1. MRI of the brain, both with and without contrast, were normal without evidence of acute stroke or enhancing lesions. 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 2. MR venogram was negative for a cavernous sinus thrombosis or superior sagittal sinus thrombosis. 3. Head CT was negative. 4. CT angiogram of the head and neck was also negative for occlusions. HISTORY: For details, please see the History and Physical dated July 26, 2017. In brief, the ton blackman is a 57-year-old female with history of stable coronary artery disease, who presented to the [facility] department with ongoing left visual field loss which she describes as a blackout with just a p inpoint of vision. These symptoms are episodic. She has a complex ophthalmologic history with a his tory of macular pucker, which is now apparently resolved. She then developed a rapidly progressive c ataract and underwent surgery for this in May 2017. She then developed a corneal infection in June of 2017. She has seen 3 ophthalmologists, most recently Dr. Ovalle in [place], who diagnosed ischemic optic neuropathy with hypoperfusion symptoms, and there was some concern there was occlusive disease between the heart and her ophthalmic artery, as it appeared she had some ophthalmic artery i nsufficiency. I discussed the case with 2 college sports coach, Dr. Vidales and Dr. Chad Aragon. She had an echo with a bu bble study in the outpatient setting last week that did show PFO with an intracardiac shunt, though t his is not believed to be the source of her symptoms. Angiography of the head and neck was negative, as above. Cardiology does not feel that there is a cardiovascular source for her ophthalmic artery insufficiency symptoms. Neurology consult also obtained, cavernous sinus thrombosis was essentially ruled out with the above imaging. At this point, she needs a consultation with Neuro-Ophthalmology a t [facility], and she does have an appointment scheduled for August 05. There is obviously no evidence of acute stroke and I think the patient is safe to discharge home with outpatient followup i n the Neuro-Ophthalmology Clinic as scheduled. However, we are still waiting for Neurology to consul t; should there be any new recommendations from the neurology consult, that may delay her discharge. Otherwise, she is likely safe to discharge after cleared by Neurology. She has been continued on he r Xarelto for her DVT history. She will continue all of her outpatient eye medications as previously prescribed. DISPOSITION: Patient is discharged home in stable condition. FOLLOWUP: 1. Neuro-Ophthalmology at the [facility]. 2. Dr. Ovalle, stogy roller. 3. Dr. Ubaldo Aragon, college sports coach. 4. Dr. Judith Connell, her primary care. /[id number]/MODL
[2017-07-26] MEDS ORDERED: RIVAROXABAN 15 MG TAB PO ONE (21:16)
--- NOTE | 2017-07-26 22:40 | NEUROPROG ---
Assessment: [id number] CC: Dr. Ema Sandoval consulted neurology for vision issues. HPI: Pt admitted 07/25/17 to [facility] for persistent vision issues. She presented to the [facility] ER on 07/25/17 with persistent left eye vision issues (intermittent tunnel vision) and some word finding and recall difficulties. She reporteted 10 years prior she had some form of vision disturbance for which she was followed at the [facility] neuro-ophthalmology department for 1.5 years. She cannot recall what her diagnosis was and reported when she called the [place] they said they had no records older than 7 years old. At age 49 yo she reported a brief episode of aphasia for < 1 hour but reported no problems with aphasia since then. She did fine for years but 1 year ago had some form of eye degeneration in the left eye requiring surgery. This resulted in a cataract that required surgery. The surgery of the left cataract was 8 weeks ago and since then has noted episodes of tunnel vision in the left eye lasting 1 -2 minutes after sitting up or bending over. She reported she saw multiple ophthalmologists including a retinal expert and a cataract expert. One of the opthamologist performed a retinal angiogram that showed no occlusion but did show delayed filling of contrast. The opthamologist recommended she see a hand violin maker. She reported she saw one and had a echocardiogram but no abnormality was found. On 07/25/17 she noted some word finding difficulties as well as her typical left eye vision issues. She did have a left leg DVT recently following a left foot surgery and is on Xarelto (no missed dosing per patient). I initially saw the patient on 07/26/17 and confirmed the above history. She reported the brief word finding issues that occurred a few days ago had not recurred and other than left eye intermittent vision issues she had no neurologic problems. PMHx: CAD, hypothyroidism, endometriosis, DVT (07/17/17) post bunion surgery, left eye surgery with cataract with retinal scarring s/p resurfacing vitreous removal and left eye glaucoma w/lens replacement (anisocoria) Home Meds: levothyroxine, brimonidine/timolol, Vit D, nepafenac SHx: no tobacco FHx: CAD, ESRD, CVA, afib, cancer ROS: Pt denied acute fever, total vision loss, active severe chest pain, respiratory failure, total body severe rash, total bowel/bladder incontinence, psychosis, active seizures, or active bleeding O: VS reviewed General: Alert Eyes: Fundoscopic exam not able to visualize optic disks CV: Heart RRR, no murmur, no carotid bruit Lungs: Clear to auscultation bilaterally, no rhonchi or rales Neuro: - Mental: . Oriented x person/place/date . concentration appears normal . speech fluency/comprehension normal . memory appears normal . fund of knowledge appear intact - Cranial Nerves: . II: left pupil larger than right pupil, VFFTC . III/IV/: EOMI, no nystagmus, normal smooth pursuits, no Ptosis . V: facial sensation intact to LT . VII: face symmetric to eye closure and smile . VIII: hearing intact to conversation . IX/X: uvula raises symmetrically . XI: SCM 5/5 B/L strength . XII: tongue protrudes midline w/nl strength - Motor: . Tone: normal tone in all 4 extremity . Strength: no pronator drift, strength 5/5 throughout (B/L delt, bic, tri, hand ultimate hoops scoreboard operator, hf/he, df/pf) - Reflexes: B/L bic/BR/patella 2/4 - Sensory: all 4 extremity intact to light touch - Coord: [id number] wnl, MIKY wnl, [id number] wnl - Gait: deferred Labs: 07/26/17- CBC wnl, CMP wnl, H1AC 6.0, LDL 108H, TSH wnl Rads: 07/25/17- Brain MRI w/o con: normal (I personally visualized the images on ) 07/25/17- CTA head/neck: normal 07/26/17- Brain MRI w/con, MRV: old R cerebellar CVA, no acute changes, no evidence of venous thrombosis Assessment: 1. Recurrent left eye tunnel vision episodes since left eye cataract surgery May 2017: Normal neurologic exam (other than anisocoria from previous eye surgery) 07/26/17. Brain MRI w/ and w/o con on 07/25-03/06 showed no acute changes but did show old cerebellar stroke. Brain MRV showed no thrombosis and CTA head/neck unremarkable. 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 As symptoms began after cataract eye surgery it seems her left eye is the primary cause of her symptoms so a separate neurologic cause is unlikely. Pt reported cardiology evaluation and echocardiogram did not find a separate cause for her left eye issues. 2. 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 Pt possibly had an aphasia episode at age 49 yo and then a recurrent word finding episode a few days ago. Unclear cause of these symptoms but TIA is possible. Pt should be on life-long stroke precautions (blood pressure < 140/90, H1AC< 7.0 , LDL < 70). I offered a statin but she reported she is intolerant of that medication as well as intolerant to niaspan. She also reported she cannot take aspirin due to severe acid reflux. CTA head/neck on 07/25/17 was unremarkable. Pt also reported recent echocardiogram as an outpatient was unremarkable. I have recommended she discuss these symptoms with the neuro-opthamologist she visits with at the [facility]. Plan: - Work closely with PCM to ensure blood pressure < 140/90, H1AC< 7.0, and LDL < 70 (108) given old cerebellar stroke seen on brain MRI 07/26/17 - Recommend starting low-dose statin (pt refused as she said she is intolerant of statin) - Continue Xarelto for DVT, when anticoagulation no longer needed recommend life -long aspirin 81 mg qd given old cerebellar stroke seen on brain MRI (Pt declined using aspirin in the future as she reported she is intolerant to it due to acid reflux) - Recommend outpatient referral to neuro-ophthalmology to evaluate left eye visual complaints as well as to discuss rare episodes of word finding issues at times (2 episodes since age 49 yo) and possible old right cerebellar stroke seen on brain MRI, I have no additional therapy or evaluation to perform at this time Objective: Vital Signs Temp Pulse Resp BP Pulse Ox 36.6 C 60 22 H 119/83 H 94 07/26/17 15:41 07/26/17 15:41 07/26/17 15:41 07/26/17 15:41 07/26/17 15:41 Laboratory Results 07/26/17 04:20 07/26/17 04:20 07/25/17 07/26/17 07/27/17 05:59 05:59 05:59 Intake Total 400 Output Total 0 Balance 400 PT 17.2 SEC (12.0-15.0) H 07/25/17 17:30 INR 1.41 (0.83-1.16) H 07/25/17 17:30 Allergies/Adverse Reactions: Cephalosporins Allergy (Verified 07/25/17 16:18) clindamycin Allergy (Verified 07/25/17 16:18) Penicillins Allergy (Verified 07/25/17 16:18)
--- NOTE | 2017-07-26 22:40 | NEUROPROG ---
Assessment: [id number] CC: Dr. Ema Sandoval consulted neurology for vision issues. HPI: Pt admitted 07/25/17 to [facility] for persistent vision issues. She presented to the [facility] ER on 07/25/17 with persistent left eye vision issues (intermittent tunnel vision) and some word finding and recall difficulties. She reporteted 10 years prior she had some form of vision disturbance for which she was followed at the [facility] neuro-ophthalmology department for 1.5 years. She cannot recall what her diagnosis was and reported when she called the [place] they said they had no records older than 7 years old. At age 49 yo she reported a brief episode of aphasia for < 1 hour but reported no problems with aphasia since then. She did fine for years but 1 year ago had some form of eye degeneration in the left eye requiring surgery. This resulted in a cataract that required surgery. The surgery of the left cataract was 8 weeks ago and since then has noted episodes of tunnel vision in the left eye lasting 1 -2 minutes after sitting up or bending over. She reported she saw multiple ophthalmologists including a retinal expert and a cataract expert. One of the opthamologist performed a retinal angiogram that showed no occlusion but did show delayed filling of contrast. The opthamologist recommended she see a environmental test technician. She reported she saw one and had a echocardiogram but no abnormality was found. On 07/25/17 she noted some word finding difficulties as well as her typical left eye vision issues. She did have a left leg DVT recently following a left foot surgery and is on Xarelto (no missed dosing per patient). I initially saw the patient on 07/26/17 and confirmed the above history. She reported the brief word finding issues that occurred a few days ago had not recurred and other than left eye intermittent vision issues she had no neurologic problems. PMHx: CAD, hypothyroidism, endometriosis, DVT (07/17/17) post bunion surgery, left eye surgery with cataract with retinal scarring s/p resurfacing vitreous removal and left eye glaucoma w/lens replacement (anisocoria) Home Meds: levothyroxine, brimonidine/timolol, Vit D, nepafenac SHx: no tobacco FHx: CAD, ESRD, CVA, afib, cancer ROS: Pt denied acute fever, total vision loss, active severe chest pain, respiratory failure, total body severe rash, total bowel/bladder incontinence, psychosis, active seizures, or active bleeding O: VS reviewed General: Alert Eyes: Fundoscopic exam not able to visualize optic disks CV: Heart RRR, no murmur, no carotid bruit Lungs: Clear to auscultation bilaterally, no rhonchi or rales Neuro: - Mental: . Oriented x person/place/date . concentration appears normal . speech fluency/comprehension normal . memory appears normal . fund of knowledge appear intact - Cranial Nerves: . II: left pupil larger than right pupil, VFFTC . III/IV/: EOMI, no nystagmus, normal smooth pursuits, no Ptosis . V: facial sensation intact to LT . VII: face symmetric to eye closure and smile . VIII: hearing intact to conversation . IX/X: uvula raises symmetrically . XI: SCM 5/5 B/L strength . XII: tongue protrudes midline w/nl strength - Motor: . Tone: normal tone in all 4 extremity . Strength: no pronator drift, strength 5/5 throughout (B/L delt, bic, tri, hand bottle feeder, hf/he, df/pf) - Reflexes: B/L bic/BR/patella 2/4 - Sensory: all 4 extremity intact to light touch - Coord: [id number] wnl, MIKY wnl, [id number] wnl - Gait: deferred Labs: 07/26/17- CBC wnl, CMP wnl, H1AC 6.0, LDL 108H, TSH wnl Rads: 07/25/17- Brain MRI w/o con: normal (I personally visualized the images on ) 07/25/17- CTA head/neck: normal 07/26/17- Brain MRI w/con, MRV: old R cerebellar CVA, no acute changes, no evidence of venous thrombosis Assessment: 1. Recurrent left eye tunnel vision episodes since left eye cataract surgery May 2017: Normal neurologic exam (other than anisocoria from previous eye surgery) 07/26/17. Brain MRI w/ and w/o con on 07/25-03/06 showed no acute changes but did show old cerebellar stroke. Brain MRV showed no thrombosis and CTA head/neck unremarkable. 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 As symptoms began after cataract eye surgery it seems her left eye is the primary cause of her symptoms so a separate neurologic cause is unlikely. Pt reported cardiology evaluation and echocardiogram did not find a separate cause for her left eye issues. 2. 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 Pt possibly had an aphasia episode at age 49 yo and then a recurrent word finding episode a few days ago. Unclear cause of these symptoms but TIA is possible. Pt should be on life-long stroke precautions (blood pressure < 140/90, H1AC< 7.0 , LDL < 70). I offered a statin but she reported she is intolerant of that medication as well as intolerant to niaspan. She also reported she cannot take aspirin due to severe acid reflux. CTA head/neck on 07/25/17 was unremarkable. Pt also reported recent echocardiogram as an outpatient was unremarkable. I have recommended she discuss these symptoms with the neuro-opthamologist she visits with at the [facility]. Plan: - Work closely with PCM to ensure blood pressure < 140/90, H1AC< 7.0, and LDL < 70 (108) given old cerebellar stroke seen on brain MRI 07/26/17 - Recommend starting low-dose statin (pt refused as she said she is intolerant of statin) - Continue Xarelto for DVT, when anticoagulation no longer needed recommend life -long aspirin 81 mg qd given old cerebellar stroke seen on brain MRI (Pt declined using aspirin in the future as she reported she is intolerant to it due to acid reflux) - Recommend outpatient referral to neuro-ophthalmology to evaluate left eye visual complaints as well as to discuss rare episodes of word finding issues at times (2 episodes since age 49 yo) and possible old right cerebellar stroke seen on brain MRI, I have no additional therapy or evaluation to perform at this time Objective: Vital Signs Temp Pulse Resp BP Pulse Ox 36.6 C 60 22 H 119/83 H 94 07/26/17 15:41 07/26/17 15:41 07/26/17 15:41 07/26/17 15:41 07/26/17 15:41 Laboratory Results 07/26/17 04:20 07/26/17 04:20 07/25/17 07/26/17 07/27/17 05:59 05:59 05:59 Intake Total 400 Output Total 0 Balance 400 PT 17.2 SEC (12.0-15.0) H 07/25/17 17:30 INR 1.41 (0.83-1.16) H 07/25/17 17:30 Allergies/Adverse Reactions: Cephalosporins Allergy (Verified 07/25/17 16:18) clindamycin Allergy (Verified 07/25/17 16:18) Penicillins Allergy (Verified 07/25/17 16:18)
--- NOTE | 2017-07-27 13:13 | GCON ---
[f rep st] CONSULTATION HISTORY OF PRESENT ILLNESS: This is a 57-year-old woman with multiple major ophthalmologic issues. I saw her last week in the office, and at that time, she was having trouble when she would lie down. She might lose her vision completely and then sometimes she would sit up and it would come back start ing as a central dot and the dot would expand to the whole visual field. She had been having some tro uble with headaches as well. She has had multiple procedures done including cataract surgery, and then she has been also seeing a retinal specialists as well. She has recently been told that the blood flow in one eye is significant ly worse than the blood flow in the other eye and is being evaluated on an ongoing basis by the [facility] ophthalmological services around [facility]. When I saw her, I was very concerned about her eye symptoms and, by personally calling Dr. Edilberto kam on his cellphone, arranged for her to be seen by him the next morning at 11 o'clock; he added her to his schedule. However, she felt like their medical record requirements were deleterious for her an d so she did not see him and was not evaluated at that time, but he was very concerned about her symp toms. At this point, she is not having chest pain, chest tightness, shortness of breath. She was told that she was having some trouble finding her words when she came in. She was having tunn el vision in the left eye. She was having headaches. She has been on Xarelto for her DVT. She has had problems with hand surgery in the remote past. She had bunion surgery and then a diagnosis of DVT. The patient is now here without any cardiovascular complaints. She has been seen in the past by Dr. Loyola in our practice. She has been told she has coronary arter y disease by Dr. Loyola. CARDIAC RISK FACTORS: Negative for hypertension, hyperlipidemia, diabetes mellitus, hyperuricemia, o besity smoking. Cardiac risk factors are positive for a family history of premature coronary disease and a history of being told she had coronary disease by Dr. Loyola. It may be on the basis of a calci um score. I do not have that data where I am dictating and will try to find that later. REVIEW OF SYSTEMS: A 5-point review of systems is negative except as noted above. SOCIAL HISTORY: She is an active woman who tries to do a lot of exercise and walking. She has no his tory of smoking. Does not drink significant amounts of alcohol. PHYSICAL EXAMINATION: VITAL SIGNS: Blood pressure 119/83, heart rate 60, respiratory rate 14. She is sitting comfortably. CARDIOVASCULAR: Reveals an S1, S2. Soft systolic murmur on the left sternal bor david. No diastolic murmur. No S3, S4. No rubs. PULMONARY: Rhonchi bilaterally. No rales, wheezing, or dullness. ABDOMEN: Soft and nontender. EXTREMITIES: No edema. ASSESSMENT AND PLAN: 1. Family history of premature coronary disease. 2. Probable patent foramen ovale. 3. Multiple optical issues. 4. Status post cataract surgery. 5. Headaches. She has been having a lot of complicated issues of recent. She has nothing to suggest an acute walker ry syndrome, heart failure, significant arrhythmias. She has had a negative CT angiogram of the carot ids and the head and has not found an abnormality. She has been told that one ophthalmologic vessel h as decreased flow compared to the other, and because that is not clear, she has been referred to the specialist at the [facility]. I have reviewed her echocardiographic findings with Dr. Vidales, and we both agree that the question o f this PFO is not causing these recurrent symptoms where she has very specific eye findings and visua l field complaints that follow a pattern. We do not think there is a cardiovascular cause for that ri ght at this time. I was going to set her up for a nuclear stress test, but at this time, she is going to postpone that until she gets better and gets these eye issues checked out. I have been told she i s going to be seen by the neurologist as well today. She has a normal MRI of the brain as well. So from a cardiovascular point of view, I do not see an acute problem for us to deal with. If anythin g develops or changes, please let us know. We are very happy to see her, but it seems like she has ve ry complex eye and possibly vascular issues and may benefit from seeing a configuration manager in case ther e is a collagen vascular syndrome going on here. I do not see anything to suggest to me a tumor, but some kind of systemic illness is certainly possible. I also do not see anything that suggesting to me that she has got a systemic infection such as endocarditis. She was checked for her sinus vein throm bosis, etc., on her studies earlier, and those showed no significant abnormality. I have answered all her questions. We will step off the Cardiology case and see from here what lory ps. We are happy to help if you need us. Just let us know. I have discussed this case with the [facility]. /[id number]/MODL
--- NOTE | 2017-07-27 14:08 | ASDISCHSUM ---
Discharge Information Plan Status:Home with No Needs Medically Cleared to Leave: Discharge Date:07/26/2017 06:32 PM CM D/C Disposition:Home, Routine, Self-Care ADT D/C Disposition:Home, Routine, Self-Care Projected Discharge Date:07/26/2017 06:32 PM Transportation at D/C: Discharge Delay Reason: Follow-Up Date:07/26/2017 06:32 PM Discharge Slot: Final Diagnosis: Placement Information Patient Contact Information Contact Name:CAMILO Relationship:Uncle Address: Work Phone: City: [facility] Phone: State/Zip Code: Email: Financial Information Financial Class:HMO and PPO Plans Primary Plan Desc:[facility] Primary Plan Number:[id number] Secondary Plan Desc: Secondary Plan Number: Assessment Information [facility] CM Progress Note CM Note CM Note Notes: Therapies clear pt for home, no CM d/c needs identified. Date Signed: 07/26/2017 04:53 PM Electronically Signed By:JUVENAL Sanabria Intervention Information
--- NOTE | 2017-07-27 14:08 | ASDISCHSUM ---
Discharge Information Plan Status:Home with No Needs Medically Cleared to Leave: Discharge Date:07/26/2017 06:32 PM CM D/C Disposition:Home, Routine, Self-Care ADT D/C Disposition:Home, Routine, Self-Care Projected Discharge Date:07/26/2017 06:32 PM Transportation at D/C: Discharge Delay Reason: Follow-Up Date:07/26/2017 06:32 PM Discharge Slot: Final Diagnosis: Placement Information Patient Contact Information Contact Name:CAMILO Relationship:Uncle Address: Work Phone: City: [facility] Phone: State/Zip Code: Email: Financial Information Financial Class:HMO and PPO Plans Primary Plan Desc:[facility] Primary Plan Number:[id number] Secondary Plan Desc: Secondary Plan Number: Assessment Information [facility] CM Progress Note CM Note CM Note Notes: Therapies clear pt for home, no CM d/c needs identified. Date Signed: 07/26/2017 04:53 PM Electronically Signed By:JUVENAL Sanabria Intervention Information
--- NOTE | 2017-07-27 14:08 | ASDISCHSUM ---
Discharge Information Plan Status:Home with No Needs Medically Cleared to Leave: Discharge Date:07/26/2017 06:32 PM CM D/C Disposition:Home, Routine, Self-Care ADT D/C Disposition:Home, Routine, Self-Care Projected Discharge Date:07/26/2017 06:32 PM Transportation at D/C: Discharge Delay Reason: Follow-Up Date:07/26/2017 06:32 PM Discharge Slot: Final Diagnosis: Placement Information Patient Contact Information Contact Name:CAMILO Relationship:Uncle Address: Work Phone: City: [facility] Phone: State/Zip Code: Email: Financial Information Financial Class:HMO and PPO Plans Primary Plan Desc:[facility] Primary Plan Number:[id number] Secondary Plan Desc: Secondary Plan Number: Assessment Information [facility] CM Progress Note CM Note CM Note Notes: Therapies clear pt for home, no CM d/c needs identified. Date Signed: 07/26/2017 04:53 PM Electronically Signed By:JUVENAL Sanabria Intervention Information
== END 2017-07-26 18:32 | disposition home or self-care (01) ==
LOC: F3N 23:06
PROVIDERS: ADMIT Hospitalist; ATTEND Hospitalist
DX: H47.012 Ischemic optic neuropathy, left eye (principal); H40.052 Ocular hypertension, left eye; I82.409 Acute embolism and thrombosis of unspecified deep veins of unspecified lower extremity; R47.01 Aphasia; I25.10 Atherosclerotic heart disease of native coronary artery without angina pectoris; E03.9 Hypothyroidism, unspecified; Z79.01 Long term (current) use of anticoagulants; Z98.49 Cataract extraction status, unspecified eye
CPT/HCPCS: 70450; 70496; 70498; 70544; 70551; 70552; 92523; 93005; 97161; G0378; A9585; Q9967

== ENCOUNTER → 2018-11-09 | Outpatient (CLI) | payer OTHER | LOC: BMCIMAGING 13:09 | PROVIDERS: ATTEND Emergency Medicine | DX: M79.605 Pain in left leg (principal) ==